=== PATIENT | male | born 1985 ===

== ENCOUNTER 2017-06-01 08:41 | Emergency (ER) | payer MEDICAID ==
[2017-06-01 08:44] VITALS: BMI 29.9
[2017-06-01] MEDS ORDERED: Iohexol 240 (50 ml) PO ONE (09:08)
[2017-06-01] MEDS ORDERED: Sodium Chloride 0.9% 1,000 ML IV STA (09:08)
--- NOTE | 2017-06-01 09:24 | ED PDOC ---
HPI: Back Time Seen by Provider: 06/01/17 09:02 Chief Complaint (Nursing): Back Pain Chief Complaint (Provider): Back pain and periumbilical abdominal pain History Per: Patient History/Exam Limitations: no limitations Onset/Duration Of Symptoms: Days (chronic) Current Symptoms Are (Timing): Still Present Additional Complaint(s): Fabien Simpson is a 32 year old male with a past medical history of a periumbilical hernia present for 2 years presenting to the ED for an evaluation of chronic back pain and periumbilical abdominal pain associated with nausea, non-bloody vomiting, and non-bloody diarrhea occurring for a few weeks prior to arrival. The patient reports his hernia is increasing in size therefore causing pain to his periumbilical area. He denies experiencing any new injuries, any recent change in activities, dysuria, urinary incontinence, urinary frequency, constipation, chest pain, shortness of breath, fever, chills, dizziness, numbness, tingling, weakness, or headache. PMD: Missy Nieves MD Past Medical History Reviewed: Historical Data, Nursing Documentation, Vital Signs Vital Signs: Last Vital Signs Temp 97.8 F 06/01/17 08:46 Pulse 98 H 06/01/17 08:46 Resp 20 06/01/17 08:46 BP 135/75 06/01/17 08:46 Pulse Ox 100 06/01/17 08:46 - Medical History PMH: Denies: Chronic Kidney Disease Other PMH: periumbilical hernia - Surgical History Surgical History: No Surg Hx - Family History Family History: States: No Known Family Hx - Social History Current smoker - smoking cessation education provided: Yes Alcohol: Social Drugs: Denies - Home Medications Home Medications: Ambulatory Orders Medication Instructions Recorded Dicyclomine [Bentyl] 20 mg PO Q8 PRN #30 tab 02/16/16 - Allergies Allergies/Adverse Reactions: Allergies Allergy/AdvReac Type Severity Reaction Status Date / Time No Known Allergies Allergy Verified 02/16/16 10:04 Review of Systems ROS Statement: Except As Marked, All Systems Reviewed And Found Negative Constitutional: Negative for: Fever, Chills Cardiovascular: Negative for: Chest Pain Respiratory: Negative for: Shortness of Breath Gastrointestinal: Positive for: Nausea, Vomiting, Abdominal Pain (periumbilical abdominal pain), Diarrhea. Negative for: Constipation, Hematochezia, Hematemesis Genitourinary Male: Negative for: Dysuria, Frequency, Incontinence Musculoskeletal: Positive for: Back Pain (chronic) Neurological: Negative for: Weakness, Numbness, Headache, Dizziness, Other (no tingling) Physical Exam - Reviewed Nursing Documentation Reviewed: Yes Vital Signs Reviewed: Yes - Physical Exam Appears: Positive for: Non-toxic, No Acute Distress Head Exam: Positive for: ATRAUMATIC, NORMOCEPHALIC Skin: Positive for: Normal Color, Warm, Dry Eye Exam: Positive for: Normal appearance, EOMI Neck: Positive for: Normal, Painless ROM, Supple Cardiovascular/Chest: Positive for: Regular Rate, Rhythm, Chest Non Tender. Negative for: Murmur Respiratory: Positive for: Normal Breath Sounds. Negative for: Respiratory Distress Gastrointestinal/Abdominal: Positive for: Soft, Tenderness (to hernia in periumbilical area; partially reducible), Hernia (present in periumbilical area) . Negative for: Other (no ecchymosis) Back: Positive for: Normal Inspection. Negative for: L CVA Tenderness, R CVA Tenderness, Vertebral Tenderness Extremity: Positive for: Normal ROM. Negative for: Pedal Edema, Deformity Neurologic/Psych: Positive for: Alert, Oriented (x3). Negative for: Motor/ Sensory Deficits - Laboratory Results Result Diagrams: 06/01/17 09:39 06/01/17 09:39 Interpretation Of Abn Labs: no acute - ECG O2 Sat by Pulse Oximetry: 100 (RA) Pulse Ox Interpretation: Normal - CT Scan/US ct Other Rad Studies (CT/US): Read By Radiologist Other Rad Interpretation: no acute - Progress ED Course And Treament: 1413: Stable. AAOx3. Pain free. Tolerated PO. FU with pcp. Medical Decision Making Medical Decision Making: Time: 09:02 Impression: Back pain and periumbilical abdominal pain secondary to hernia in periumbilical area Plan: * CMP * Lipase * CBC (with differential) * NS 0.9% 1,000 ml IV 1,000 mls/hr * Omnipaque 50 ml PO * Toradol 15 mg IVP * CT Abd pelvis PO & IV Contrast * Reevaluation Scribe Attestation: Documented by Clarice Valentin, acting as a scribe for Onofre Lennon MD. Provider Scribe Attestation: All medical record entries made by the Scribe were at my direction and personally dictated by me. I have reviewed the chart and agree that the record accurately reflects my personal performance of the history, physical exam, medical decision making, and the department course for this patient. I have also personally directed, reviewed, and agree with the discharge instructions and disposition. Disposition - Clinical Impression Clinical Impression: Abdominal pain, Chronic back pain - Patient ED Disposition Is Patient to be Admitted: No Counseled Patient/Family Regarding: Studies Performed, Diagnosis, Need For Followup - Disposition Referrals: [facility] [Outside] - 06/02/17 Disposition: Routine/Home Disposition Time: 14:14 Condition: STABLE Additional Instructions: Return if not better in 3 days. Instructions: Acute Abdominal Pain (ED), Chronic Back Pain (ED) Forms: [facility] ED School/Work Excuse
[2017-06-01 09:43] LABS: BASO % 0.7 % (0.0-2.0); EOS # 0.3 K/uL (0.0-0.7); EOS % 4.7 % (0.0-4.0); HEMATOCRIT 43.6 % (35.0-51.0); LYMPH # 2.3 K/uL (1.0-4.3); LYMPH % 40.3 % (20.0-40.0); MEAN CELL VOLUME 91.8 fl (80.0-94.0); MEAN CORPUSCULAR HGB CONC 33.7 g/dL (33.0-37.0); MEAN PLATELET VOLUME 7.1 fl (7.2-11.7); MONO # 0.5 K/uL (0.0-0.8); MONO % 9.2 % (0.0-10.0); NEUT # 2.6 K/uL (1.8-7.0); NEUT % 45.1 % (50.0-75.0); NRBC % 0.1 % (0.0-0.0); RED CELL DISTRIBUTION WIDTH 12.2 % (11.5-14.5); WHITE BLOOD COUNT 5.7 K/uL (4.8-10.8)
[2017-06-01 10:18] LABS: ALB/GLOB RATIO 1.3 (1.0-2.1); BILIRUBIN,TOTAL 0.3 mg/dl (0.2-1.3); CALCIUM 9.5 mg/dL (8.4-10.2); CARBON DIOXIDE 30 mmol/L (22-30); CHLORIDE 103 mmol/L (98-107); GFR AFRICAN-AMERICAN > 60; GLUCOSE,RANDOM 118 mg/dL (75-110); LIPASE 108 U/L (23-300); SODIUM 141 mmol/l (132-148); TOTAL PROTEIN 7.5 G/DL (6.3-8.2)
[2017-06-01 10:26] LABS: ALKALINE PHOSPHATASE 62 U/L (38-126); ALT/SGPT 66 U/L (21-72); AST/SGOT 34 U/L (17-59); BLOOD UREA NITROGEN 10 mg/dl (9-20); POTASSIUM 4.2 MMOL/L (3.6-5.0)
[2017-06-01] MEDS ORDERED: Iohexol 300 100 ML IJ ONE (12:13)
[2017-06-01] MEDS ORDERED: Sodium Chloride 0.9% 50 ML IV ONE (12:13)
--- NOTE | 2017-06-01 13:26 | CT ---
PROCEDURE: CT Abdomen and Pelvis with contrast HISTORY: Abdominal pain COMPARISON: None. TECHNIQUE: Contrast dose: 05 ml Omnipaque 300 Radiation dose: Total exam DLP = 886.95 mGy-cm. This CT exam was performed using one or more of the following dose reduction techniques: Automated exposure control, adjustment of the mA and/or kV according to patient size, and/or use of iterative reconstruction technique. FINDINGS: LOWER THORAX: Unremarkable. LIVER: Hepatic steatosis. No focal masses. No intrahepatic bile duct dilatation or perihepatic ascites. GALLBLADDER AND BILE DUCTS: Unremarkable. PANCREAS: Unremarkable. No gross lesion or ductal dilatation. SPLEEN: Unremarkable. ADRENALS: Unremarkable. No mass. KIDNEYS AND URETERS: Unremarkable. No hydronephrosis. No solid mass. VASCULATURE: Unremarkable. No aortic aneurysm. BOWEL: Unremarkable. No obstruction. No gross mural thickening. APPENDIX: Normal appendix. PERITONEUM: Unremarkable. No free fluid. No free air. LYMPH NODES: Unremarkable. No enlarged lymph nodes. BLADDER: Unremarkable. REPRODUCTIVE: Unremarkable. BONES: No acute fracture. OTHER FINDINGS: Bilateral Inguinal Hernias IMPRESSION: No acute findings related to/accounting for the clinical presentation.Additional benign and/or incidental findings described above.
[2017-06-01 13:43] VITALS: BP 138/74; PULSE 70; RESP 16; TEMP 98
[2017-06-01 14:00] VITALS: O2SAT 100
== END 2017-06-01 15:30 | disposition home or self-care (01) ==
LOC: H.ER 08:41
DX: R10.9 Unspecified abdominal pain (principal); G89.29 Other chronic pain; F17.200 Nicotine dependence, unspecified, uncomplicated
CPT/HCPCS: 74177; 80053; 83690; 85025; 96374; 99283; J1885; J7040; Q9966; Q9967